=== PATIENT | male | born 1975 | race Caucasian/White ===

== ENCOUNTER 2021-05-16 08:13 | Emergency (ER) | payer BC ==
[~2021-05-16] VITALS: Ht 188 cm; Wt 127.0 kg
--- NOTE | 2021-05-16 08:19 | NUR ---
PT IS IN ROOM #2A. DR AMAYA EVALUATED THE PT.
[2021-05-16] MEDS ORDERED: PRED50TA PO (08:29)
--- NOTE | 2021-05-16 08:33 | NUR ---
PT WAS D/C'd TO HOME. D/C INSTRUCTIONS GIVEN TO THE PT BY DR AMAYA.
[2021-05-16 08:34] VITALS: BP 136/74
== END 2021-05-16 08:36 | disposition home or self-care (01) ==
LOC: ER 08:13
DX: L23.4 Allergic contact dermatitis due to dyes (principal)
CPT/HCPCS: A4663